=== PATIENT | female | born 1975 | race Caucasian/White ===

== ENCOUNTER → 2017-09-24 | Outpatient (CLI) | payer OTHER | LOC: COL.RAD 08:04 | DX: M76.61 Achilles tendinitis, right leg (principal); M76.71 Peroneal tendinitis, right leg ==

== ENCOUNTER 2017-10-17 11:16 | Outpatient (RCR) | payer OTHER | END 2017-10-23 12:11 | disposition home or self-care (01) | LOC: WSOH 11:16 | DX: S86.011A Strain of right Achilles tendon, initial encounter (principal); Y93.41 Activity, dancing; Y92.214 College as the place of occurrence of the external cause; Y99.0 Civilian activity done for income or pay ==

== ENCOUNTER 2017-11-08 09:01 | Outpatient (RCR) | payer OTHER | END 2018-02-06 | disposition home or self-care (01) | LOC: WSOH | DX: S86.011D Strain of right Achilles tendon, subsequent encounter (principal); M76.71 Peroneal tendinitis, right leg; Y92.214 College as the place of occurrence of the external cause; Y93.21 Activity, ice skating; Y99.0 Civilian activity done for income or pay ==

== ENCOUNTER → 2020-03-23 | Outpatient (CLI) | payer BC | LOC: COL.RAD 03-19 12:00 | DX: N92.1 Excessive and frequent menstruation with irregular cycle (principal) ==

== ENCOUNTER → 2020-05-26 | Outpatient (CLI) | payer BC | LOC: MC.RAD 07:00 | DX: Z12.31 Encounter for screening mammogram for malignant neoplasm of breast (principal) ==

== ENCOUNTER → 2021-08-30 | Outpatient (CLI) | payer BC | LOC: MC.RAD 07:24 | DX: Z12.31 Encounter for screening mammogram for malignant neoplasm of breast (principal) ==

== ENCOUNTER → 2023-11-30 | Outpatient (CLI) | payer BC | LOC: MC.RAD 12:38 | DX: N63.10 Unspecified lump in the right breast, unspecified quadrant (principal) ==

== ENCOUNTER → 2023-12-12 | Outpatient (CLI) | payer BC | LOC: MC.RAD 09:42 | DX: N63.10 Unspecified lump in the right breast, unspecified quadrant (principal) ==